=== PATIENT | male | born 1975 | race Hispanic/Latino ===

== ENCOUNTER 2022-08-05 11:00 | Emergency (ER) | payer OTHER ==
[~2022-08-05] VITALS: Ht 175.3 cm; Wt 113.4 kg
[2022-08-05 11:51] LABS: BASOPHILS % (AUTO) 0.4 % (0.0-5.0); HEMATOCRIT 41.8 % (42-54); LYMPHOCYTES % (AUTO) 18.2 % (21.0-51.0); MEAN CORPUSCULAR HEMOGLOBIN 29.3 pg (27.0-33.0); MEAN CORPUSCULAR HGB CONC 35.6 g/dL (32.0-36.0); MEAN CORPUSCULAR VOLUME 82.1 fL (79-99); MONOCYTES % (AUTO) 10.6 % (3.0-13.0); NEUTROPHILS % (AUTO) 70.4 % (40.0-77.0); PLATELET COUNT (AUTO) 209 K/uL (130-400); RED BLOOD CELL COUNT(AUTO) 5.09 MIL/uL (4.50-6.20); RED CELL DISTRIBUTION WIDTH 11.9 % (11.0-15.5); WHITE BLOOD COUNT (AUTO) 7.5 K/uL (4.8-10.8)
[2022-08-05] MEDS ORDERED: ACETAMINOPHEN 500 MG TABLET PO ONE (12:00)
[2022-08-05] MEDS ORDERED: 0.9%NACL 1000ML 2,500 ML IV ONE (12:00)
[2022-08-05] MEDS ORDERED: NIRM1TAB PO (12:03)
[2022-08-05] MEDS ORDERED: IBUP-1493 PO (12:03)
[2022-08-05] MEDS ORDERED: AMOX500C2 PO (12:03)
[2022-08-05 12:19] LABS: POTASSIUM 3.7 mmol/L (3.5-5.1)
[2022-08-05 12:42] LABS: ALBUMIN 3.4 g/dL (3.5-5.0); CREATININE 0.7 mg/dL (0.5-1.5)
[2022-08-05 13:24] VITALS: BP 133/71
== END 2022-08-05 13:25 | disposition home or self-care (01) ==
LOC: EDH 11:00
DX: U07.1 COVID-19 (principal); J02.0 Streptococcal pharyngitis; E11.9 Type 2 diabetes mellitus without complications
CPT/HCPCS: 99285; 96360; 71045; 87635; 84484; 85025; 80053; 87040 ×2; 87880; 87804 ×2; 82948; 36415; 93005; 83605; C9803; J7030